=== PATIENT | male | born 2000 | race Caucasian/White ===

== ENCOUNTER 2019-01-04 17:21 | Emergency (ER) | payer SELFPAY ==
[~2019-01-04] VITALS: Ht 162.6 cm; Wt 65.0 kg
[2019-01-04] MEDS ORDERED: BACITRACIN ZINC OINT UDPKT TOP ONE (18:00)
[2019-01-04] MEDS ORDERED: LIDOCAINE HCL/PF 1% 10 MG/ML 5ML VIAL IJ ONE (18:00)
[2019-01-04] MEDS ORDERED: TETANUS, DIPHTHERIA, PERTUSSIS VAC/PF 0.5ML (>7YR OLD) IM ONE (18:00)
[2019-01-04] MEDS ORDERED: IBUPROFEN 600MG TABLET PO ONE (18:00)
[2019-01-04 18:01] VITALS: BP 146/80
== END 2019-01-04 18:52 | disposition home or self-care (01) ==
LOC: ER 17:21
DX: S61.218A Laceration without foreign body of other finger without damage to nail, initial encounter (principal); S60.00XA Contusion of unspecified finger without damage to nail, initial encounter; W26.0XXA Contact with knife, initial encounter; Y93.9 Activity, unspecified; Y92.9 Unspecified place or not applicable
CPT/HCPCS: 12001; 73140; 90471; 90715; 99283; J3490; Z7610